=== PATIENT | female | born 1940 | race Caucasian/White ===

== ENCOUNTER 2024-08-28 08:16 | Observation (INO) | payer MEDICARE, BC ==
[2024-08-15 15:30] LABS: BASOPHILS % (AUTO) 0.4 % (0-1); EOSINOPHILS # (AUTO) 0.1 X10'3 (0-0.9); EOSINOPHILS % (AUTO) 1.1 % (0-6); MEAN CORPUSCULAR HEMOGLOBIN 31.5 PG (27.0-31.0); MEAN CORPUSCULAR HGB CONC 33.7 g/dL (33.0-36.5); MEAN CORPUSCULAR VOLUME 93.5 FL (78-98); MEAN PLATELET VOLUME 7.8 FL (7.4-10.4); MONOCYTES # (AUTO) 0.6 X10'3 (0-0.9); MONOCYTES % (AUTO) 6.6 % (2-12); NEUTROPHILS % (AUTO) 68.9 % (42-75); PRE OP HEMOGLOBIN 13.5 g/dL (12.0-16.0); PRE OP PLATELET COUNT 438 X10'3 (140-440); PRE OP WHITE BLOOD COUNT 8.8 10'3 (4.8-10.8); RED BLOOD COUNT 4.27 X10'6 (4.20-5.60); RED CELL DISTRIBUTION WIDTH 14.3 % (11.5-14.5)
[2024-08-15 15:31] LABS: BILIRUBIN,URINE NEGATIVE (Neg); CLARITY,URINE CLEAR (Clear); COLOR,URINE YELLOW (Yellow); GLUCOSE, URINE NEGATIVE (Neg); KETONES,URINE TRACE mg/dl (Neg); LEUKOCYTE ESTERASE ,URINE NEGATIVE (Neg); NITRITES, URINE NEGATIVE (Neg); OCCULT BLOOD,URINE NEGATIVE (Neg); PROTEIN,URINE NEGATIVE (Neg); UROBILINOGEN,URINE 0.2 E.U/dL (0.2-1.0)
[2024-08-15 15:40] LABS: UA COLLECTION TYPE CLN CATCH MIDSTREAM
[2024-08-15 15:44] LABS: PRE OP INR 1.3 INR; PRE OP PROTIME 13.3 SECONDS (9.0-12.0)
[2024-08-15 15:45] LABS: ALBUMIN 4.2 G/DL (3.4-5.0); ALBUMIN/GLOBULIN RATIO 1.3 (1.1-1.5); ALKALINE PHOSPHATASE 78 IU/L (46-116); BLOOD UREA NITROGEN 15 MG/DL (7-18); BUN/CREATININE RATIO 18.8 (10.0-20.0); CALCIUM 9.4 MG/DL (8.5-10.1); CHLORIDE 92 MMOL/L (99-107); PRE OP ALT 33 U/L (30-65); PRE OP ANION GAP 5 (8-16); PRE OP AST 25 U/L (10-37); PRE OP BILIRUB, TOTAL 0.9 MG/DL (0.0-1.0); PRE OP GLUCOSE 94 MG/DL (70-104); PRE OP SODIUM 131 MMOL/L (135-145); TOTAL CARBON DIOXIDE 33.6 MMOL/L (24-32); TOTAL PROTEIN 7.5 G/DL (6.4-8.2); eGFR 68 ML/MIN
[2024-08-15 15:58] LABS: HEMOGLOBIN A1C 6.2 % (4.5-6.2)
[2024-08-15 16:42] LABS: PRE OP POTASSIUM 3.1 MMOL/L (3.4-5.1)
[~2024-08-28] VITALS: Ht 160 cm; Wt 75.6 kg
[2024-08-28] VITALS (19 sets, daily range): BP systolic 120–149; BP diastolic 58–82; PULSE 66–85; RESP 10–18; TEMP 97.4–97.7; O2SAT 90–99
[~2024-08-28 08:16] MED LIST: AMLO10TA13 PO; ATOR40TA72 PO; DULA0.75 SQ; GLIM2TAB6 PO; LISI1TAB51 PO; METF-900 PO; OMEP20CA16 PO; PIOG15TA67 PO; RIVA20TA PO; tranexamic acid 1gm/0.7% sal. 100 ML IV ONE
[2024-08-28 09:17] LABS: ISTAT CREATININE 0.7 mg/dL (0.6-1.1); ISTAT HGB 13.6 g/dl (12.0-16.0); ISTAT IONIZED CALCIUM 1.11 mmol/L (1.03-1.32); POC BUN/CREATININE RATIO 27.1 (6.6-38.0)
[2024-08-28] MEDS: VANCOMYCIN 1,500MG inj. 1,500 MG in normal saline 500ml IV soln 300 ML IV ONE (10:02)
[2024-08-28] MEDS: ringers solution, lacted 1,000 ML IV SCH (10:02)
[2024-08-28] MEDS: famotidine 20mg tablet PO ONE (10:02)
[2024-08-28] MEDS ORDERED: Thrombin (Bovine) 5,000 unit vial TP ONE (10:37)
[2024-08-28] MEDS ORDERED: gelatin sponge, absorbable (Gelfoam 100) sponge TP ONE (10:37)
[2024-08-28] MEDS ORDERED: vancomycin 1,000mg inj ONE (10:39)
[2024-08-28] MEDS ORDERED: methylene blue (5mg/ml) 50mg/10ml ampul IV ONE (11:02)
[2024-08-28] MEDS ORDERED: magnesium hydroxide 30ml (MOM) UD suspension PO PRN (12:40)
[2024-08-28] MEDS ORDERED: naloxone 0.4 mg/ml inj IV PRN (12:40)
[2024-08-28] MEDS ORDERED: bisacodyl 10mg suppository rectal RC PRN (12:40)
[2024-08-28] MEDS ORDERED: acetaminophen 325mg tablet PO PRN (12:40)
[2024-08-28] MEDS ORDERED: traMADol 50MG tablet PO PRN (12:40)
[2024-08-28] MEDS ORDERED: diphenhydrAMINE 25mg capsule PO PRN (12:40)
[2024-08-28] MEDS ORDERED: ondansetron/PF 4mg/2ml inj IV PRN ×2 (12:40→16:00)
[2024-08-28] MEDS ORDERED: BUPIVACAINE liposomal/PF 13.3 MG/ML vial IM ONE (13:11)
[2024-08-28] MEDS ORDERED: sevoflurane 250ml liquid IH ONE (13:13)
[2024-08-28] MEDS ORDERED: BUPIVAcaine/PF 5 mg/ml 10ml ONE (13:14)
[2024-08-28] MEDS ORDERED: proCHLORperazine 10 MG/2 ml inj IV PRN (16:00)
[2024-08-28] MEDS ORDERED: ringers solution, lacted 1,000 ML IV SCH (16:00)
[2024-08-28] MEDS: acetaminophen 1,000mg/100ml IV 100 ML IV ONE (16:45)
[2024-08-28] MEDS: ceFAZolin 2gm in dextrose, iso 50 ML IV SCH (23:12)
[2024-08-28] MEDS: INSULIN LISPRO 100 UNIT/ML INSULN.PEN MULTI-DOSE SQ SCH (23:12)
[2024-08-28] MEDS: lisinopril 20mg tablet PO SCH (23:13)
[2024-08-28] MEDS: pantoprazole 40mg Tablet.DR PO SCH (23:13)
[2024-08-29] MEDS: potassium cl 20mEq in 1/2 NS 1,000 ML IV SCH (00:19)
[2024-08-29 02:00] VITALS: BP 112/61; PULSE 84; RESP 13; TEMP 98.7; O2SAT 93
[2024-08-29 04:56] LABS: BASOPHILS % (AUTO) 0.3 % (0-1); EOSINOPHILS % (AUTO) 0.4 % (0-6); HEMOGLOBIN 11.2 g/dl (12.0-16.0); LYMPHOCYTES # (AUTO) 0.7 X10'3 (1.1-4.8); LYMPHOCYTES % (AUTO) 7.1 % (21-51); MEAN CORPUSCULAR HEMOGLOBIN 32.9 PG (27.0-31.0); MEAN CORPUSCULAR VOLUME 94.1 FL (78-98); MEAN PLATELET VOLUME 7.5 FL (7.4-10.4); MONOCYTES # (AUTO) 0.8 X10'3 (0-0.9); MONOCYTES % (AUTO) 8.3 % (2-12); NEUTROPHILS # (AUTO) 7.8 X10'3 (1.8-7.7); NEUTROPHILS % (AUTO) 83.9 % (42-75); PLATELET COUNT 332 X10'3 (140-440); RED CELL DISTRIBUTION WIDTH 14.1 % (11.5-14.5); WHITE BLOOD COUNT 9.3 X10'3 (4.5-11.0)
[2024-08-29 05:11] LABS: ALANINE AMINOTRANSFERASE 23 U/L (12-78); ALBUMIN 3.1 G/DL (3.4-5.0); ALBUMIN/GLOBULIN RATIO 1.1 (1.1-1.5); ALKALINE PHOSPHATASE 65 IU/L (46-116); ANION GAP 6 (8-16); ASPARTATE AMINO TRANSFERASE 16 U/L (10-37); BILIRUBIN,TOTAL 0.9 MG/DL (0.1-1.0); BLOOD UREA NITROGEN 12 MG/DL (7-18); BUN/CREATININE RATIO 16.4 (10.0-20.0); CALCIUM 8.5 MG/DL (8.5-10.1); CHLORIDE 102 MMOL/L (99-107); CREATININE 0.73 MG/DL (0.40-0.90); GLUCOSE 206 MG/DL (70-104); SODIUM 138 MMOL/L (135-145); eCRCL 47 ML/MIN; eGFR 76 ML/MIN
[2024-08-29] MEDS: amLODIPine 5mg tablet PO SCH (07:18)
[2024-08-29] MEDS: pioglitazone 15mg tablet PO SCH (07:18)
[2024-08-29] MEDS: rivaroxaban 20mg tablet PO SCH (07:19)
[2024-08-29] MEDS: atorvastatin 20mg tablet PO SCH (07:19)
[2024-08-29] MEDS: HYDROchlorothiazide 12.5mg capsule PO SCH (07:19)
[2024-08-29 07:20] VITALS: BP_SYST 109; PULSE 76
[2024-08-29] MEDS: glimepiride 1 MG tablet PO SCH (07:20)
[2024-08-30] MEDS ORDERED: acetaminophen 325mg tablet PO PRN (12:40)
== END 2024-08-29 10:17 | disposition home or self-care (01) ==
LOC: PAS 08:16 → PAS IN 12:48 → ORTHO 4S 17:48
PROVIDERS: ADMIT Specialist; ATTEND Specialist
DX: M19.011 Primary osteoarthritis, right shoulder (principal); M75.101 Unspecified rotator cuff tear or rupture of right shoulder, not specified as traumatic; G89.18 Other acute postprocedural pain; R20.0 Anesthesia of skin; I10 Essential (primary) hypertension; I48.91 Unspecified atrial fibrillation; E87.5 Hyperkalemia; Z88.0 Allergy status to penicillin; Z79.01 Long term (current) use of anticoagulants; Z79.899 Other long term (current) drug therapy
CPT/HCPCS: 23430; 23472; 64415; 71046; 73030; 80047; 80053; 81003; 82948; 83036; 85610; 85730; 86885; 86900; 86901; 96365; 96366; 96375; 97161; A4565; A4615; A4618; A7000; C1776; C9290; G0378; J0665; J0690; J1815; J3370; J3480; J3490; J7120; Q9968; 36415; 76000; 85025; 87081; 96376; 97110; 97530; A6449; A6455; G0379; J0131; J1100; J2704; J7040